=== PATIENT | female | born 1985 | race Caucasian/White ===

== ENCOUNTER → 2018-04-28 | Outpatient (CLI) | payer OTHER | LOC: M RAD 09:06 | DX: Z34.83 Encounter for supervision of other normal pregnancy, third trimester (principal); Z3A.31 31 weeks gestation of pregnancy | CPT/HCPCS: 76820 ==

== ENCOUNTER 2018-06-24 11:26 | Inpatient (IN) | payer OTHER ==
[~2018-06-24] VITALS: Ht 170.2 cm; Wt 84.0 kg
[2018-06-24] VITALS (23 sets, daily range): BP systolic 108–164; BP diastolic 60–105
[2018-06-24] MEDS ORDERED: RANI1TAB6 PO (12:16)
[2018-06-24] MEDS ORDERED: VALA1TAB2 PO (12:16)
[2018-06-24] MEDS ORDERED: PRENTAB9 PO (12:16)
[2018-06-24] MEDS ORDERED: LACTATED RINGER'S 1000 ML IV STA (12:43)
--- NOTE | 2018-06-24 13:04 | HPEPDOC ---
Obstetrical History & Physical General Date of Admission Jun 24, 2018 at 11:43 History of Present Illness 32 y/o at 39+2 for clear fluid leaking out since 829. No reg ctx's and no severe pain. No VB. Pos FM. Preg c/b an echogenic focus seen at 20 wk scan that was not noted on NOV scan. Smoker 3-4/day. H/O HSV, has been on daily Valtrex for the last month, no prodromal sx's and no lesions she knows of. 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) Past Medical History Surgical History: Dilatation and Curettage, Other (knee x1) Family History Significant Family History: No pertinent family hx Social History Marital Status: Family situation: Spouse/partner home Psychosocial History: No pertinent psych hx * Smoker: current smoker Alcohol: Denies Drugs: denies Abuse Violence Screening Have you been hit/kicked/slapp: No Have you been sexually assault: No Imunizations Tdap status: current Influenza Status: current Allergies Coded Allergies: No Known Allergies (Unverified , 06/24/18) Medications Scheduled Multivitamins/ ( 27-0.8 mg) 1 Tab Tab, 1 TAB PO DAILY Ranitidine HCl (Ranitidine [address]) 150 Mg Tab, 1 TAB PO DAILY Valacyclovir HCl (Valacyclovir HCl) 1 Gm Tab, 1 GRAM PO DAILY Physical Examination Physical Examination GENERAL: Alert and oriented times three. ABDOMEN: Gravid and non-tender to touch. FETUS: Is vertex (VTX) by sterile vaginal examination (SVE), cx 3/75/-3/vtx ballotable, clear liquid noted from vagina EXTREMITIES: No edema. Vital Signs/I&O Vital Signs Date Time Temp Pulse Resp B/P (MAP) Pulse Ox O2 Delivery O2 Flow Rate FiO2 06/24/18 11:47 98.4 96 20 126/85 (99) Laboratory Data Urine Culture: No Growth Pertinent Laboratoy Data Blood Type: O+ RBC Antibody Screen: Negative HIV: Negative Hepatitis B: Negative Hepatitis C: Unknown Rapid Plasma Reagin: Nonreactive Rubella: Immune Varicella: Immune Chlamydia/Gonorrhea: Negative Group B Streptococcus: Negative Quad Screen Test: Declined Cystic Fibrosis: Negative Glucose Tolerance Test: 85 Anatomy Ultrasound Placenta Location: Posterior Normal Anatomy: Yes Placenta Previa: No Assessment Variability: Moderate Accelerations: Positive Decelerations: None Tocometer Contractions: Yes Frequency: irregular Duration: less than 60 seconds Strength: palpated as mild Assessment/Plan Assessment SROM at term Plan Admit and orient. Manager Endoscopy and consent. Diet: clears Group B Streptococcus (GBS) neg Labs and intravenous (IV) per unit protocol. Counseled on Pitocin and augmentation of labor (IOL) prn. Lactated Ringers (LR): Bolus 1000 mL prior to epidural, o/w at 125 mL/hr. Anticipate normal spontaneous delivery () C-S as appropriate. Sessions SESSIONS,LICHA Hines MD Jun 24, 2018 13:04
[2018-06-24 13:16] LABS: HEMATOCRIT 33.9 % (36.0-47.0); HEMOGLOBIN 11.3 g/dl (12.0-15.5); MEAN CORPUSCULAR HEMOGLOBIN 27.9 pg (27.0-33.0); MEAN CORPUSCULAR HGB CONC 33.3 g/dl (32.0-36.5); MEAN CORPUSCULAR VOLUME 83.7 fl (80.0-96.0); PLATELET COUNT, AUTOMATED 247 10^3/uL (150-450); RED BLOOD COUNT 4.05 10^6/uL (4.00-5.40); WHITE BLOOD COUNT 8.1 10^3/uL (4.0-10.0)
[2018-06-24] MEDS: LR 1,000 ML IV SCH ×2 (14:09→18:34)
[2018-06-24] MEDS ORDERED: FENTANYL 2MCG/ML ROPIVACAINE 0.2% IN 0.9% NACL 100ML IVBAG As Ordered ONE (16:32)
[2018-06-24] MEDS ORDERED: LACTATED RINGER'S 1000 ML IV PRN (17:45)
[2018-06-24] MEDS ORDERED: EPIDURAL COMMENT XX SCH (17:45)
[2018-06-24] MEDS ORDERED: FENTANYL/ROPIVACAINE/NACL BAG 100 ML EPIDURAL SCH (17:45)
[2018-06-24] MEDS ORDERED: NALOXONE INJ 0.4 MG/1 ML VIAL (J2310) IV PRN (17:45)
[2018-06-24] MEDS ORDERED: EPIDURAL/PCA KEYS XX PRN (17:45)
[2018-06-24] MEDS ORDERED: ePHEDrine SULFATE 25 MG/5 ML(5MG/ML) SYRINGE IV PRN (17:45)
[2018-06-24] MEDS ORDERED: ONDANSETRON 4MG/2ML VIAL (J2405) IV PRN ×2 (17:45→21:00)
[2018-06-24] MEDS ORDERED: diphenhydrAMINE INJ 50MG/ML VIAL (J1200) IV PRN (17:45)
[2018-06-24] MEDS ORDERED: REFRIGERATOR IV KEYS XX PRN (17:45)
[2018-06-24] MEDS ORDERED: ceFAZolin 2 GM/D5W 50 ML IV BAG (J0690 PER 500MG) As Ordered ONE (19:08)
[2018-06-24] MEDS ORDERED: BICITRA 30ML SOLN UDC As Ordered ONE (19:08)
--- NOTE | 2018-06-24 19:10 | IPNPDOC ---
Text Note Date of Service The patient was seen on 06/24/18. NOTE Over the last 2 hrs has had 4 prolonged decels, the second to last lasting ~10 min. Mod betty persists and inbetween has accels, however Cx is unchanged from 5 cm over the last 2 hrs as well. I rec PCD for nonaugmentable NRFHT. Informed consent obtained. Sessions MD GUILLORY,Jeffrey, I+O VS, Jeffrey, I+O Laboratory Tests 06/24/18 12:56 Red Blood Count 4.05, Mean Corpuscular Volume 83.7, Mean Corpuscular Hemoglobin 27.9, Mean Corpuscular Hemoglobin Concent 33.3, Red Cell Distribution Width 13.5 Vital Signs Date Time Temp Pulse Resp B/P (MAP) Pulse Ox O2 Delivery O2 Flow Rate FiO2 06/24/18 14:46 70 155/90 (111) 06/24/18 14:06 98.2 18 SESSIONS,LICHA Hines MD Jun 24, 2018 19:10
[2018-06-24] MEDS ORDERED: LIDOCAINE PRES-FREE 2% 10ML AMP As Ordered ONE (19:11)
[2018-06-24] MEDS ORDERED: BICITRA 30ML SOLN UDC PO ONE (19:15)
[2018-06-24] MEDS ORDERED: OXYTOCIN INJ 10 UNITS/ML VIAL (J2590) As Ordered ONE (19:27)
[2018-06-24] MEDS ORDERED: MORPHINE PRES-FREE INJ 10 MG/10 ML VIAL (J2274) As Ordered ONE (19:35)
[2018-06-24] MEDS ORDERED: ONDANSETRON 4MG/2ML VIAL (J2405) As Ordered ONE (19:39)
[2018-06-24] MEDS ORDERED: MIDAZOLAM INJ 2 MG/2 ML VIAL (J2250) As Ordered ONE (19:40)
[2018-06-24 19:57] LABS: CORD GAS ABE A -3.2; CORD GAS ABE V -5.2; CORD GAS HCO3 A 26.2 MEQ/L; CORD GAS HCO3 V 20.5 MEQ/L; CORD GAS O2 SAT A 22.2 %; CORD GAS O2 SAT V 75.2 %; CORD GAS PCO2 A 64.9 mmHg; CORD GAS PCO2 V 40.8 mmHg; CORD GAS PH A 7.224 UNITS; CORD GAS PH V 7.319 UNITS; CORD GAS PO2 A 15.4 mmHg; CORD GAS PO2 V 35.3 mmHg; CORD GAS SBC A 19.9 MEQ/L; CORD GAS SBC V 19.7 MEQ/L; CORD GAS TCO2 A 28.2 MEQ/L; CORD GAS TCO2 V 21.8 MEQ/L
[2018-06-24] MEDS: fentaNYL 100 MCG/2 ML INJECTION (J3010) IV PRN ×4 (20:30→20:45)
[2018-06-24] MEDS ORDERED: fentaNYL 100 MCG/2 ML INJECTION (J3010) As Ordered ONE (20:33)
[2018-06-24] MEDS ORDERED: OXYTOCIN 30 UNITS IN 0.9% NaCl 500ML IV BAG (J2590) As Ordered ONE (20:52)
[2018-06-24] MEDS ORDERED: RHOGAM 300 MCG (1500 IU) INJ (J2790) IM SCH (21:00)
[2018-06-24] MEDS ORDERED: LR 1,000 ML IV SCH (21:00)
[2018-06-24] MEDS ORDERED: OXYTOCIN DRIP 30 UNITS in APPROPRIATE DILUENT 1 EA IV SCH (21:00)
[2018-06-24] MEDS ORDERED: METOCLOPRAMIDE INJ 10MG/2ML VIAL (J2765) IV PRN (21:00)
[2018-06-24] MEDS: DOCUSATE SODIUM 100 MG CAP PO SCH (21:00)
[2018-06-24] MEDS ORDERED: PERCOCET 5MG/325MG TAB PO PRN ×2 (21:00)
[2018-06-24] MEDS ORDERED: MEASLES,MUMPS,RUBELLA VACCINE INJ (MMR-II) (90707) SC SCH (21:00)
[2018-06-24] MEDS ORDERED: PERCOCET 5MG/325MG TAB As Ordered ONE ×2 (21:46→21:48)
[2018-06-24] MEDS: PERCOCET 5MG/325MG TAB PO PRN (21:49)
[2018-06-25] MEDS: KETOROLAC 30 MG/ML VIAL (J1885) IV SCH ×3 (02:51→15:06)
[2018-06-25 06:00] VITALS: BP 107/62
[2018-06-25 06:57] LABS: HEMATOCRIT 28.2 % (36.0-47.0); HEMOGLOBIN 9.6 g/dl (12.0-15.5); MEAN CORPUSCULAR HEMOGLOBIN 28.6 pg (27.0-33.0); MEAN CORPUSCULAR VOLUME 83.9 fl (80.0-96.0); PLATELET COUNT, AUTOMATED 196 10^3/uL (150-450); RED BLOOD COUNT 3.36 10^6/uL (4.00-5.40); WHITE BLOOD COUNT 10.2 10^3/uL (4.0-10.0)
[2018-06-25] MEDS: PRENATAL VITAMINS CHEWABLE TABLET PO SCH (09:07)
[2018-06-25] MEDS: DOCUSATE SODIUM 100 MG CAP PO SCH ×2 (09:07→19:38)
--- NOTE | 2018-06-25 09:17 | IPNPDOC ---
Text Note Date of Service The patient was seen on 06/25/18. NOTE POD1 PCD for NRFHT States feeling well, pain controlled with prescribed meds. Baby bonding and feeding well. No heavy VB. Lochia slowing. Ambulatory X1. Tolerating PO with out issues. VSSAF NAD A&O RRR CTAB LE no C/C/E Ut at U-2, firm UO appropriate overnight CBC appropriate this AM a/p: Doing well. Cont routine postop care. D/C likely tomorrow. D/C Dubose soon, DTV in 6 hrs. Scheduled Motrin and PRN Percocet. Ambulate. Sessions MD GUILLORY,Jeffrey, I+O VSJeffrey I+O Laboratory Tests 06/24/18 12:56 Red Blood Count 4.05, Mean Corpuscular Volume 83.7, Mean Corpuscular Hemoglobin 27.9, Mean Corpuscular Hemoglobin Concent 33.3, Red Cell Distribution Width 13.5 06/25/18 06:33 Red Blood Count 3.36 L, Mean Corpuscular Volume 83.9, Mean Corpuscular Hemoglobin 28.6, Mean Corpuscular Hemoglobin Concent 34.0, Red Cell Distribution Width 13.5 Vital Signs Date Time Temp Pulse Resp B/P (MAP) Pulse Ox O2 Delivery O2 Flow Rate FiO2 06/25/18 06:00 98.3 87 18 107/62 (77) 100 Room Air I&O- Last 24 Hours up to 6 AM 06/25/18 06:00 Intake Total 2000 ml Output Total 2100 ml Balance -100 ml SESSIONS,LICHA Hines MD Jun 25, 2018 09:17
--- NOTE | 2018-06-25 10:46 | RO ---
DATE OF PROCEDURE: 06/24/2018 PREOPERATIVE DIAGNOSIS: Nonreassuring heart tracing. POSTOPERATIVE DIAGNOSIS: Nonreassuring heart tracing and straight occiput posterior and double knots in the umbilical cord. PROCEDURE: Primary delivery. SURGEON: Dr. Wu Mariscal TRIAL MANAGEMENT ASSOCIATE: None except commercial pest control technician. ANESTHESIA: Epidural. ESTIMATED BLOOD LOSS: 800 mL. DRAINS: 150 mL of clear urine in the Dubose catheter. FLUIDS REPLACED: 1800 mL of lactated Ringer's. PREOP ANTIBIOTICS: Ancef 2 grams IV. SPECIMENS: None. FINDINGS: Pfannenstiel skin incision, low transverse uterine incision, clear fluid, straight occiput posterior, scores 7 and 9, weight 8 pounds 3 ounces or 3700 grams, female, two distinct and separate knots in the umbilical cord. INDICATIONS: The patient was admitted for spontaneous rupture of membranes, but never proceeded past 5 cm and had several prolonged decelerations making it impossible for me to augment her labor. Informed consent was obtained and the operating room team was mobilized. DESCRIPTION OF OPERATION: The patient was taken to the operating room with an IV in place after informed consent had been obtained. She was placed in the dorsal supine position with a leftward tilt. The FSE was removed after heart tones were in normal range. She was prepped and draped in the normal sterile fashion. We confirmed that the epidural was indeed adequate, and a Pfannenstiel skin incision was carried down to the layer of fascia, which was nicked in the midline and extended the extent of the skin incision. The superior aspect of the fascial incision was tented up, the underlying rectus muscles were dissected off sharply. This was repeated inferiorly. The rectus muscles were in the midline and with my digit, I breached the peritoneal cavity and did a peritoneal stretch technique and created an adequate peritoneal window. Bladder blade was placed and a bladder flap was easily created. A low transverse uterine incision was then performed without difficulty, and the amniotic fluid was noted to be clear. was noted to be straight occiput posterior (OP), and I could see the bridge of her nose and her lips immediately with incision. I flexed the head and with my casino assistant manager doing fundal pressure, we delivered the infant through the hysterotomy in the skin incision. It was a somewhat tight fit, and the came out stunned; however, quickly recovered as the 1 minute of 7 shows. The cord was clamped times two and cut and the cord blood and cord gases were both obtained. Arterial blood gas was 7.2 with a base excess of negative 3.3. Venous blood gas was 7.31 with a base excess of negative 5.2. The placenta was delivered with traction and fundal massage, and Pitocin was running wide open with 20 units in the IV bag. The uterus was cleared of all clots and debris with two dry sponges and Ring forceps were placed at the superior and inferior aspects of the uterine incision. The uterus was not exteriorized as it was too large to bring through the skin incision. With a running locked suture of #0 Vicryl, I closed the hysterotomy from left to right with #0 Vicryl and with #0 Monocryl, an imbrication stitch was performed. I then brought the bladder flap up and closed that as well as a small hematoma was noted at the lower uterine segment. I watched this hematoma for approximately 2 minutes, and it was never under tension, nor was it expanding. When I was confident that it was hemostatic, we cleared the colic gutters of all clots and debris and irrigated a small amount at the lower uterine segment. Hemostasis was noted from the incision. The peritoneum was then closed with a running #2-0 Vicryl, and the fascia was closed with a running #0 Vicryl from left to right. The subcutaneous tissue was copiously irrigated, made to be hemostatic, and this potential space was closed with a running #2-0 Vicryl. #4-0 Monocryl was used in a subcuticular fashion to close the skin from left to right. Dressing was placed. The patient was froglegged, and a bimanual exam showed the uterus was firm at U and a small amount of clot was expressed from the vagina. All counts were correct throughout the case, including sponge, needle and instruments.
[2018-06-25 18:00] VITALS: BP 107/67
[2018-06-25] MEDS: PERCOCET 5MG/325MG TAB PO PRN (19:39)
[2018-06-25 22:00] VITALS: BP 102/59
[2018-06-25] MEDS: IBUPROFEN 800 MG TAB PO SCH (23:22)
[2018-06-26 02:00] VITALS: BP 101/55
[2018-06-26] MEDS: PERCOCET 5MG/325MG TAB PO PRN (05:25)
[2018-06-26 06:00] VITALS: BP 110/75
[2018-06-26] MEDS: IBUPROFEN 800 MG TAB PO SCH (06:33)
[2018-06-26] MEDS: PRENATAL VITAMINS CHEWABLE TABLET PO SCH (08:14)
[2018-06-26] MEDS: DOCUSATE SODIUM 100 MG CAP PO SCH (08:14)
--- NOTE | 2018-06-26 09:48 | IPNPDOC ---
Progress Note Date of Service: Jun 26, 2018 Day#: 2 Progress Note POD 2/PPD 2 SUBJECT: Lashay is a 33yo [id number] s/p uncomplicated PLTCS at 39w3d indicated for NRFHT/inability to augment after SROM, doing well day # 2. She has been ambulating, voiding spontaneously without issue and tolerating regular diet. Breast feeding without issue. Reports lochia is like a normal period. She denies f/c/n/v/CP/SOB. She feels ready to go home. OBJECTIVE: VITAL SIGNS: Within normal limits, afebrile. Alert and oriented times three. Abdomen: Fundus firm at U-2. Soft, appropriately tender to palpation. Optifoam dressing in place, dry and intact overlying pfannensteil incision. Labs: pre-op H/H: 11.3/33.9 post-op H/H: 9.6/28.2 ASSESSMENT: Lashay is a 33yo [id number] s/p uncomplicated PLTCS at 39w3d indicated for NRFHT/inability to augment after SROM, doing well day # 2. Vitals within normal limits, afebrile, hemodynamically stable with no evidence of infection. Meeting all milestones. PLAN: 1. Discharge to home today. 2. Home meds given: percocet and Motrin for pain, colace, lanolin 3. Encouraged breast feeding 4. interested in minipill, will discuss at next visit 5. Next visit is 2 week incision check with Dr. Mariscal 6. Discussed return precautions at length: fevers, chills, increasing abdominal pain, foul smelling discharge, evidence of incision redness/drainage/separation, or breast redness/pain 7. Vaginal rest 6 weeks, no heavy lifting greater than weight of baby Dr. Ashley Quesada MD VS, I&O, 24H, Jeffrey Vital Signs/I&O Vital Signs Date Time Temp Pulse Resp B/P (MAP) Pulse Ox O2 Delivery O2 Flow Rate FiO2 06/26/18 06:00 97.8 89 18 110/75 (87) 99 Room Air I&O- Last 24 Hours up to 6 AM 06/26/18 06:00 Output Total 1150 ml Balance -1150 ml Laboratory Data 24H LABS Laboratory Tests 2 06/26/18 00:47: Serology Scanned Report Hepatitis B Testing Ashley Quesada MD Jun 26, 2018 09:48
--- NOTE | 2018-06-26 09:53 | DS.PDOC ---
Discharge Summary General Date of Admission Jun 24, 2018 at 11:43 Date of Discharge Jun 26, 2018 Attending Physician: LICHA ZURITA MD Discharge Summary PROCEDURES PERFORMED DURING STAY: primary low transverse section ADMITTING DIAGNOSES: 1. spontaneous rupture of membranes at term DISCHARGE DIAGNOSES: 1. spontaneous rupture of membranes at term 2. inability to augment related to nonreassuring heart tracing 3. double knotted cord and straight occiput posterior presentation COMPLICATIONS/CHIEF COMPLAINT: SROM. HISTORY OF PRESENT ILLNESS/HOSPITAL COURSE: Lashay is a 33yo [id number] s/p uncomplicated PLTCS at 39w3d indicated for NRFHT/inability to augment after SROM, doing well day # 2. Benign course, at time of discharge, vitals within normal limits, afebrile, hemodynamically stable with no evidence of infection. Meeting all milestones and desires discharge. DISCHARGE MEDICATIONS: Please see below. ALLERGIES: Please see below. PHYSICAL EXAMINATION ON DISCHARGE: VITAL SIGNS: Within normal limits, afebrile. Alert and oriented times three. Abdomen: Fundus firm at U-2. Soft, appropriately tender to palpation. Optifoam dressing in place, dry and intact overlying pfannensteil incision. LABORATORY DATA: pre-op H/H: 11.3/33.9 post-op H/H: 9.6/28.2 ACTIVITY: see below DIET: regular DISPOSITION: home DISCHARGE PLAN/INSTRUCTIONS: 1. Discharge to home today. 2. Home meds given: percocet and Motrin for pain, colace, lanolin 3. Encouraged breast feeding 4. interested in minipill, will discuss at next visit 5. Next visit is [address] incision check with Dr. Zurita 6. Discussed return precautions at length: fevers, chills, increasing abdominal pain, foul smelling discharge, evidence of incision redness/drainage/separation, or breast redness/pain 7. Vaginal rest 6 weeks, no heavy lifting greater than weight of baby DISCHARGE CONDITION: Stable TIME SPENT ON DISCHARGE: Greater than [address] Ashley Quesada MD Vital Signs/I&Os Vital Signs Date Time Temp Pulse Resp B/P (MAP) Pulse Ox O2 Delivery O2 Flow Rate FiO2 06/26/18 06:00 97.8 89 18 110/75 (87) 99 Room Air I&O- Last 24 Hours up to 6 AM 06/26/18 06:00 Output Total 1150 ml Balance -1150 ml Laboratory Data Labs 24H Laboratory Tests 2 06/26/18 00:47: Serology Scanned Report Hepatitis B Testing Discharge Medications Scheduled Multivitamins/ ( 27-0.8 mg) 1 Tab Tab, 1 TAB PO DAILY, (Reported) Ranitidine HCl (Ranitidine [address]) 150 Mg Tab, 1 TAB PO DAILY, (Reported) Valacyclovir HCl (Valacyclovir HCl) 1 Gm Tab, 1 GRAM PO DAILY, (Reported) Allergies Coded Allergies: No Known Allergies (Unverified , 06/24/18) Ashley Quesada MD Jun 26, 2018 09:53
[2018-06-26 09:56] VITALS: BP 112/58
[2018-06-26] MEDS ORDERED: COLA100C5 PO (10:26)
[2018-06-26] MEDS ORDERED: PERCOCET PO (10:26)
[2018-06-26] MEDS ORDERED: IBUP-1022 PO (10:26)
== END 2018-06-26 11:25 | disposition home or self-care (01) | DRG 773 ==
LOC: M LDO 11:26 → M LDI 11:43 → M OBS 22:56
PROVIDERS: ADMIT Obstetrics & Gynecology; ATTEND Obstetrics & Gynecology
PROC: 10D00Z1 Extraction of Products of Conception, Low, Open Approach (ICD-10-PCS; principal; 2018-06-24 19:14)
DX: O99.334 Smoking (tobacco) complicating childbirth (principal); F17.210 Nicotine dependence, cigarettes, uncomplicated; Z3A.39 39 weeks gestation of pregnancy; O76 Abnormality in fetal heart rate and rhythm complicating labor and delivery; O69.2XX0 Labor and delivery complicated by other cord entanglement, with compression, not applicable or unspecified; O64.8XX0 Obstructed labor due to other malposition and malpresentation, not applicable or unspecified; Z37.0 Single live birth

== ENCOUNTER 2019-02-14 00:57 | Emergency (ER) | payer OTHER ==
[~2019-02-14] VITALS: Ht 170.2 cm; Wt 72.5 kg
[~2019-02-14 00:57] MED LIST: COLA100C5 PO; IBUP-1022 PO; PERCOCET PO; PRENTAB9 PO; RANI-356 PO; VALA1TAB2 PO
[2019-02-14 04:56] VITALS: BP 130/74
--- NOTE | 2019-02-14 05:36 | CR ---
DATE OF CONSULTATION: 02/14/2019 REASON FOR CONSULTATION: Right lower quadrant abdominal pain with abnormal CT scan. HISTORY OF PRESENT ILLNESS: The patient is a pleasant 34-year-old woman transferred from [facility] for surgical evaluation for some right lower quadrant abdominal discomfort. The patient reports that she had developed some lower abdominal pain which was fairly generalized on February 11. This was fairly persistent and non crampy. She had no nausea or vomiting. She denied any fevers or chills. She continued to eat normally. The pain became more localized over Wednesday and into Wednesday, particularly in the right lower quadrant inside the anterior superior iliac spine. It became most severe on Wednesday and at about 1 o'clock in the afternoon she presented to [facility] for evaluation. She underwent evaluation there with some basic laboratory studies and then had a CT scan of the abdomen and pelvis. This showed what was described as a complex structure measuring 3.5 x 3.9 cm in the right pelvis. It was reported that the appendix was seen and appeared normal. She had additional pelvic ultrasound and transvaginal ultrasound which showed no abnormalities in the ovaries. Her lab work was not significantly abnormal. The PA in [facility] had contacted me in the evening of February 13 and I recommended that she be transferred for surgical evaluation as they had no surgeon available in [place]. Unfortunately there was some miscommunication where in the nursing yard supervisor and/or the emergency physician had declined to transfer. When I became aware of this some hours later I advised the nursing yard supervisor that I had felt it appropriate for the patient to be transferred. Apparently [place] had not made any headway in getting her transferred elsewhere and she was brought to [facility] where she arrived at about 1 o'clock in the morning. She reports that she still has had no fevers or chills. She has been resting quietly and reports that the pain seems to have diminished somewhat as well. She had a section for her first child back in June 24, 2018. She reports that she has not yet had a normal menstrual period. MEDICATIONS: The patient is not on any routine medications. ALLERGIES: She denies any drug allergies. PAST SURGICAL HISTORY: 1. The patient has had her section in May. 2. She has had a previous dilatation and curettage (D C). 3. She has had knee surgery. 4. She had a recent treatment for varicose veins in her right lower extremity. This was just recently on January 31, 2019. PAST MEDICAL HISTORY: Patient is generally healthy. She continues to breast feed. SOCIAL HISTORY: She is and has one child. She smokes cigarettes up to half a pack a day. She has some alcohol which is I would consider a light intake. FAMILY HISTORY: Noncontributory. REVIEW OF SYSTEMS: Review of systems reveals no history of chest pain, palpitations, cough, wheezing, shortness of breath, melena, hematochezia, diarrhea, constipation, dysuria or hematuria. She has no history of deep venous thrombosis (DVT) or pulmonary embolus. PHYSICAL EXAMINATION: General: The patient was dozing when I came to see your. She roused readily to voice. She is very pleasant and appears comfortable lying quietly on the hospital stretcher. Vital signs: Her vital signs at [facility] showed her to be afebrile with a temperature of 98.8 with a pulse of 67 and blood pressure of 136/92. Skin: Warm and dry. HEENT: Sclerae are anicteric. Neck: Supple without mass. Heart exam: Regular rate and rhythm. She is not tachycardiac. Lungs: Clear to auscultation. Abdomen: The abdomen is flat. She has a well-healed low transverse suprapubic scar. She has bowel sounds present in all four quadrants. There is no tympany to percussion. There is no tenderness to percussion. There is no evident hernia. Palpation reveals the abdomen to be soft throughout. There is no guarding or rebound. She reports some mild direct tenderness on fairly deep palpation in the right lower quadrant. Lower extremities: Without edema and she has palpable radial and dorsalis pedis pulses. LABORATORY STUDIES: Lab studies from [facility] include a CBC showing a white count of 6, hemoglobin of 14, hematocrit of 41 and platelet count of 273,000. Differential count shows 63% neutrophils, 28% lymphocytes. Chemistry profile showed normal electrolytes with a BUN of 9, creatinine 0.6 and a glucose of 84. Liver function tests are normal. A lipase was normal at 20. Urinalysis is not suggestive of a urinary tract infection and she had an HCG done that was negative. All of these labs had been obtained at [facility] and were sent with her. IMAGING: A CT scan of the abdomen and pelvis with intravenous (IV) contrast. This had been interpreted as showing a complex structure measuring 3.5 x 3.9 cm in the right pelvis. The density was described as containing a central hypodensity. In the written report it notes that "this is believed to represent the right ovary with a follicle within it.". It was noted that the appendix was seen and was normal. A pelvic ultrasound was obtained during which both ovaries were identified and described as being without any evidence of adnexal mass or cyst. And endovaginal ultrasound described the ovarian sizes which were roughly equal and it was noted that the right ovary did not appear to contain a mass and blood flow was noted to both ovaries. I reviewed the patient's CT scan personally. Her right ovary appears to lie higher up in the right lower quadrant area. The left ovary is down in the true pelvis. The right ovary appears to lie right in the area of her reported discomfort. I would agree that the appendix appears small and uninflamed in the area were I can see this. IMPRESSION: I believe the density described on the CT scan represents the patient's right ovary likely with a developing follicle. I think her pain is likely related to this as well. It may be that since her section that the right ovary is displaced somewhat up out of the pelvis where she is better able to feel this and have some discomfort associated with the developing follicle. There is no sign of appendicitis and no other evident intra-abdominal or intrapelvic areas of concern that I can identify at this time. RECOMMENDATIONS: I have recommended to the patient that she return home. I do not believe she will benefit from in-hospital observation or admission. She certainly does not require any surgical intervention at this time. I have recommended that she take mild [id number] pain relievers as necessary. She can take a diet as tolerated. If she has recurrence of more severe pains then I believe evaluation by obstetrics/gynecology (PUBLIC SPEAKING PROFESSOR) on an outpatient basis would likely be appropriate. If her pain is more severe then a return to the emergency department would be appropriate but I think this scenario is unlikely. The patient and I discussed this plan and she appears comfortable with this.
== END 2019-02-14 04:58 | disposition home or self-care (01) ==
LOC: M ED 00:57
DX: R10.2 Pelvic and perineal pain (principal); F17.210 Nicotine dependence, cigarettes, uncomplicated